=== PATIENT | female | born 1980 | race Two or more races ===

== ENCOUNTER → 2024-08-08 | Outpatient (CLI) | payer BC ==
[2024-08-08 07:52] LABS: Basophils # (auto) 0 10 ^3/uL (0-0.2); Basophils % (auto) 0.7 % (0.0-2.0); Eosinophils # (auto) 0.2 10 ^3/uL (0-0.8); Eosinophils % (auto) 3.9 % (0.0-7.0); Hematocrit 43.4 % (36.0-46.0); Hemoglobin 14.6 g/dL (12.2-16.2); Lymphocytes # (auto) 1.6 10 ^3/uL (0.4-5.4); Lymphocytes % (auto) 35.5 % (10.0-50.0); Mean Corpuscular Hemoglobin 30.8 pg (28.0-32.0); Mean Corpuscular Hgb Conc. 33.7 g/dL (32.0-36.0); Mean Corpuscular Volume 91.4 fL (80.0-100.0); Monocytes # (auto) 0.7 10 ^3/uL (0-1.3); Monocytes % (auto) 14.2 % (0.0-12.0); Neutrophils # (auto) 2.1 10 ^3/uL (1.6-8.6); Neutrophils % (auto) 45.7 % (37.0-80.0); Nucleated Red Blood Cells % 0.1 %; Platelet Count (auto) 279 10^3/uL (140-450); Red Blood Cells 4.75 10^6/uL (4.0-5.20); Red Cell Distribution Width 14.4 % (11.8-14.3); White Blood Cell 4.6 10^3/uL (4.4-10.8)
[2024-08-08 08:17] LABS: Alanine Aminotransferase 26 U/L (7-40); Albumin 4.2 g/dL (3.2-4.8); Alkaline Phosphatase 56 U/L (46-116); Anion Gap 6 (5-15); Aspartate Aminotransferase 18 U/L (13-40); BUN/Creatinine Ratio 12.5 (10.0-20.0); Bilirubin, Total 0.6 mg/dL (0.2-1.0); Blood Urea Nitrogen 9 mg/dL (9-23); Calcium 9.1 mg/dL (8.7-10.4); Carbon Dioxide 26 mmol/L (20-31); Chloride 107 mmol/L (98-107); Cholesterol 202 mg/dL (< 200); Glucose 79 mg/dL (74-106); HDL Cholesterol 76 mg/dL (40-59); LDL Cholesterol 112 mg/dL (< 100); Potassium 4.4 mmol/L (3.5-5.1); Sodium 139 mmol/L (136-145); Triglycerides 70 mg/dL (< 150)
== END | disposition home or self-care (01) ==
LOC: LAB 06:58
PROVIDERS: ATTEND Nurse Practitioner Family
DX: Z00.01 Encounter for general adult medical examination with abnormal findings (principal); E78.5 Hyperlipidemia, unspecified; E66.9 Obesity, unspecified; R73.03 Prediabetes; Z79.899 Other long term (current) drug therapy
CPT/HCPCS: 36415; 80053; 80061; 82043; 82306; 82672; 83036; 84144; 84403; 84443; 85025

== ENCOUNTER 2024-09-18 08:23 | Emergency (ER) | payer BC, OTHER ==
[~2024-09-18] VITALS: Ht 165.1 cm; Wt 82.3 kg
[2024-09-18 09:00] VITALS: BP 153/92; PULSE 84; RESP 18; TEMP 98; O2SAT 99
--- NOTE | 2024-09-18 10:31 | DVH ---
CLINICAL INDICATION: Osteomyelitis of the 2nd distal phalanx TECHNIQUE: XY L HAND 3V XRAY Comparison: None FINDINGS/IMPRESSION: : There is no evidence of acute fracture or dislocation. Soft tissues are unremarkable.
--- NOTE | 2024-09-18 10:58 | ED.PDOC ---
Musculoskeletal HPI Comments Presents with the concerns of possible infection to the left small finger. Reports she has been seen 3 times for the same complaint and is on her 3rd course of antibiotics. Completed a course of Augmentin, Keflex, in his currently on azithromycin. Concerned about localized erythema around the nail bed. No other complaint or concern. Chief Complaint: Wound Check Time Seen by MD: 08:46 Primary Care Provider: SHANITA Reviewed Notes: Nurses Notes, Medications, Allergies Allergies: Coded Allergies: Ketorolac (Verified Allergy, 02/10/12) Tramadol (Verified Allergy, 02/10/12) Tromethamine (Verified Allergy, 02/10/12) Information Source: Patient Mode of Arrival: Ambulatory Past Medical History PAST MEDICAL HISTORY: Denies Family History Family History: Reviewed,noncontributory to illness, Unknown Social History Smoker: Non-Smoker Lives In: Home All Other Systems: Reviewed and Negative (per hpi) Physical Exam General Appearance: No Apparent Distress, Normal HEENT: Normal ENT Inspection, Pharynx Normal, TMs Normal Neck: Full Range of Motion, Non-Tender, Normal, Normal Inspection Respiratory: Chest Non-Tender, Lungs Clear, No Accessory Muscle Use, No Respiratory Distress, Normal Breath Sounds Cardiovascular: No Edema, No JVD, No Murmur, No Gallop, Normal Peripheral Pulses, Regular Rate/Rhythm Breast Exam: Deferred Gastrointestinal: No Organomegaly, Non Tender, No Pulsatile Mass, Normal Bowel Sounds, Soft Genitalia: Deferred Pelvic: Deferred Rectal: Deferred Extremities: No calf tenderness, Normal capillary refill, Normal inspection, Normal range of motion, Non-tender, No pedal edema Musculoskeletal : Apperance: Normal Neurologic: Alert, torch cutter II-XII nml as Tested, No Motor Deficits, Normal Affect, Normal Mood, No Sensory Deficits Cerebellar Function: Normal Reflexes: Normal Skin: Dry, Normal Color, Warm Lymphatic: No Adenopathy Was a procedure done? Was a procedure done?: No Differential Diagnosis EXT Differential Diagnosis: Other X-Ray, Labs, Meds, VS Vital Signs Date Time Temp Pulse Resp B/P (MAP) Pulse Ox O2 Delivery O2 Flow Rate FiO2 09/18/24 09:00 98.0 84 18 153/92 (112) 99 98.0 09/18/24 09:00 84 18 99 Room Air 09/18/24 08:32 98.0 84 18 153/92 (112) 99 X-Ray, Labs, Meds, VS Comment Patient is stable for discharge at this time. External notes reviewed. Test results and diagnostic imaging interpreted. All diagnostic findings, discharge care, education and instructions provided Follow-up with PCP in 2 to 3 days Patient verbalized understanding and agreed to treatment plan Vital signs stable, afebrile, no acute distress noted Patient ambulatory with strong steady gait Advised to return precautions for any new or worsening symptoms, return to ER immediately for re-evaluation Patient is aware that the purpose of this visit was for an acute medical emergency requiring emergent stabilization. Chronic conditions, including malignancies have not been ruled out. Patient is instructed to follow up with PCP as directed and discharge instructions for continued care and workup. If unable to arrange follow-up, patient is to return to the emergency department for reassessment. Patient (parent or legal guardian if applicable) was given verbal and written discharge instructions and acknowledges understanding. Time of 1ST Reevaluation: 10:30 Reevaluation 1ST: Improved Patient Education/Counseling: Diagnosis, Treatment Family Education/Counseling: Diagnosis, Treatment Departure 1 Departure Time of Disposition: 10:57 Impression: Primary Impression: Paronychia Disposition: 01 HOME / SELF CARE / HOMELESS Condition: Stable Discharged With: Self Critical Care Note Critical Care Time?: No Stability Stability form required: No Heart Score Heart Score: Heart Score Response (Comments) Value History N/A 0 EKG N/A 0 Age N/A 0 Risk Factors N/A 0 Troponin N/A 0 Total 0 BASSAM SOLIS NP Sep 18, 2024 10:58
== END 2024-09-18 11:38 | disposition home or self-care (01) ==
LOC: ER 08:23
DX: L03.012 Cellulitis of left finger (principal); Z88.6 Allergy status to analgesic agent; Z88.8 Allergy status to other drugs, medicaments and biological substances
CPT/HCPCS: 73130

== ENCOUNTER → 2024-09-18 | Outpatient (CLI) | payer BC ==
[2024-09-18 13:18] LABS: Ferritin 10.6 ng/mL (10-291); Follicle Stimulating Hormone 13.46 IU/L (SEE BELOW); Leuteinizing Hormone 4.1 IU/L
== END | disposition home or self-care (01) ==
LOC: LAB 11:54
PROVIDERS: ATTEND Obstetrics & Gynecology
DX: E28.0 Estrogen excess (principal)
CPT/HCPCS: 82670; 82728; 83001; 83002

== ENCOUNTER 2025-02-05 08:09 | Day surgery (SDC) | payer BC ==
[2025-02-02 09:34] LABS: Urine Bacteria None Seen /hpf (None Seen)
[2025-02-02 09:46] LABS: Basophils # (auto) 0 10 ^3/uL (0-0.2); Basophils % (auto) 0.6 % (0.0-2.0); Eosinophils # (auto) 0.1 10 ^3/uL (0-0.8); Eosinophils % (auto) 1.7 % (0.0-7.0); Hematocrit 44.8 % (36.0-46.0); Hemoglobin 14.9 g/dL (12.2-16.2); Lymphocytes # (auto) 2.1 10 ^3/uL (0.4-5.4); Lymphocytes % (auto) 29.1 % (10.0-50.0); Mean Corpuscular Hemoglobin 30.7 pg (28.0-32.0); Mean Corpuscular Hgb Conc. 33.3 g/dL (32.0-36.0); Mean Corpuscular Volume 92.2 fL (80.0-100.0); Monocytes # (auto) 0.7 10 ^3/uL (0-1.3); Monocytes % (auto) 9.6 % (0.0-12.0); Neutrophils # (auto) 4.2 10 ^3/uL (1.6-8.6); Platelet Count (auto) 321 10^3/uL (140-450); Red Blood Cells 4.86 10^6/uL (4.0-5.20); Red Cell Distribution Width 14.3 % (11.8-14.3); White Blood Cell 7.2 10^3/uL (4.4-10.8)
[2025-02-02 10:08] LABS: INR 1.03 (0.9-1.15); Partial Thromboplastin Time 30.8 SEC (24.5-34.5); Prothrombin Time 10.9 sec (9.3-11.8)
[2025-02-02 10:10] LABS: Alanine Aminotransferase 28 U/L (7-40); Albumin 4.6 g/dL (3.2-4.8); Alkaline Phosphatase 49 U/L (46-116); Anion Gap 7 (5-15); Aspartate Aminotransferase 20 U/L (13-40); BUN/Creatinine Ratio 19.7 (10.0-20.0); Blood Urea Nitrogen 15 mg/dL (9-23); Calcium 9.7 mg/dL (8.7-10.4); Carbon Dioxide 26 mmol/L (20-31); Chloride 102 mmol/L (98-107); Glucose 85 mg/dL (74-106); Potassium 4.2 mmol/L (3.5-5.1); Total Protein 7.4 g/dL (5.7-8.2)
[2025-02-02 10:11] LABS: Bilirubin, Total 0.9 mg/dL (0.2-1.0)
[2025-02-02 10:19] LABS: Sodium 135 mmol/L (136-145)
[2025-02-02 10:35] LABS: Urine Blood 2+ /uL (Negative); Urine Clarity Clear (Clear); Urine Color Colorless (Yellow); Urine Protein, UAD Negative (Negative); Urine Specific Gravity 1.004 (1.001-1.035); Urine Squamous Epithelial Cell FEW /hpf (<5); Urine Urobilinogen Normal (Negative); Urine WBC 1 /HPF (0-5); Urine pH 6.5 (5.0-9.0)
[~2025-02-05] VITALS: Ht 165.1 cm; Wt 83.9 kg
[~2025-02-05 08:09] MED LIST: ACET-1079 PO; IBUP-1453 PO
[2025-02-05] MEDS ORDERED: ceFAZolin 2 GM/D5W50ml 50 ML IV ONE (09:21)
[2025-02-05] MEDS ORDERED: PROPOFOL 10 MG/ML 20 ML IV ONE (11:19)
[2025-02-05] MEDS ORDERED: DexAMETHasone SOD PHOS 10MG/1ML VIAL INJ ONE (11:19)
[2025-02-05] MEDS ORDERED: MIDAZOLAM HCL 2MG/2ML 2ml VIAL (1mg/ml) ONE (11:19)
[2025-02-05] MEDS ORDERED: ONDANSETRON HCL 4 MG/2 ML VIAL ONE (11:19)
[2025-02-05] MEDS ORDERED: fentaNYL CITRATE 100 MCG/2 ML VL ONE (11:19)
[2025-02-05] MEDS ORDERED: VASOPRESSIN 20 UNIT/ML ONE (11:56)
--- NOTE | 2025-02-05 12:17 | DVHHP2 ---
[employer] CC & HPI Date Date of Admission: February 05, 2025 Chief Complaints: Reason for admission: Outpatient surgical procedure History of Present Complaints History of Present Complaints 44y with abnormal findings on Pelvic US: Thickened endometrial with suspicion of cystic hyperplasia vs Polyp. US suggestive also of a 1.5cm submucous fibroid and a 5.9cm posterior intramural fibroid Denies abnormal uterine bleeding. PAP smear up to date, NILM/ HPV neg Patient considering one more , wants conservative mgmt for fibroids. Past Medical History Cardiac: No pertinent Hx Pulmonary: No pertinent Hx Central Nervous System: No pertinent Hx GI: No pertinent Hx Hemotology/Oncology: No pertinent Hx Hepatobiliary: No pertinent Hx Psychiatric: No pertinent Hx Musculoskeletal: No pertinent Hx Rheumotologic: No pertinent Hx Infectious Disease: No peritnent Hx ENT: No pertinent Hx Renal/: Other (Nephrolithiasis) Endocrine: No pertinent Hx Dermatology: No pertinent Hx Past Surgical History: No pertinent Hx YOU[employer] SERVICES LIBRARIAN History [employer] LIBRARIAN History [employer] LIBRARIAN History: G1PO TAB x 1 History of RSO (ovarian cyst) and cervical cryotherapy Allergies: Coded Allergies: Ketorolac (Verified Allergy, Unknown, 11/07/24) Tramadol (Verified Allergy, Unknown, 11/07/24) Tromethamine (Verified Allergy, Unknown, 11/07/24) Home Meds Reported Medications Acetaminophen (Tylenol) 325 Mg Tb, PO PRN, TAB 02/02/25 Ibuprofen (Ibuprofen) 400 Mg Tab, 400 MG PO PRN, TAB 02/02/25 Family History Negative Social History Denies EtOH, Tobacco or Drug use Review of Systems Constitutional: No symptom reported Ears, Nose, & Throat: No symptom reported Eyes: No symptom reported Pulmonary/Respiratory: No symptom reported Cardiovascular: No symptom reported Gastrointestinal: No symptom reported Genitourinary: No symptom reported Musculoskeletal: No symptom reported Skin: No symptom reported Psychiatric: No symptom reported Endocrine: No symptom reported Hemotologic/Lymphatic: No symptom reported Physical Exam Physical Exam HEENT: NCAT Heart: Rhythm Normal Lungs: Clear Abdomen: Non tender Extremities: Normal Reflexes: Normal Vice President Diversity/Pelvic Exam: Other (Cervix flush with vagina. no lesions. uterus small < 8wk size, no masses) Assessment and Plan Plan Assessment and Plan: 1. Abnormal finding on Pelvic US suspicious for endometrial lesion: Polyp vs. Submucous Fibroid vs hyperplasia 2. Intramural uterine fibroid Plan: The patient will be observed and checked in for outpatient procedure: Consent: Pelvic Exam under Anesthesia, Operative Hysteroscopy, Dilation and curettage, Myosure Polypectomy vs submucous myomectomy. Risks of procedure: pain, bleeding, infection, injury to uterus (perforation), recurrence of submucous fibroids all discussed with patient in detail. She understands NO TREATMENT will be performed today for intramural 5.9cm fibroid ( Acessa procedure is not available at this facility), we will refer to outside facility for treatment options. Visit Coding OBGYN Date of Service: February 05, 2025 Billing Provider: ROMEL JIMENEZ DO [employer]DER Common Visit Codes: 51304-IHDTLYV INP/OBS CARE (HIGH), PROCEDURE ONLY [employer] F[employer]DER Procedure Codes: 95649-Y&C, DIAG OR THERAPEUTIC, 24949-[id number], SURGICAL ROMEL JIMENEZ DO February 05, 2025 12:17
[2025-02-05] MEDS ORDERED: ePHEDrine SULFATE 50 MG/ML AMP IV PRN (13:00)
[2025-02-05] MEDS ORDERED: MORPHINE SULFATE 4 MG/ML SYR/VIAL IV PRN (13:00)
[2025-02-05] MEDS ORDERED: hydrALAZINE HCL 20 MG/ML VL IV PRN (13:00)
[2025-02-05] MEDS ORDERED: ONDANSETRON HCL 4 MG/2 ML VIAL IV ONE (13:00)
[2025-02-05] MEDS ORDERED: MIDAZOLAM HCL 2MG/2ML 2ml VIAL (1mg/ml) IV PRN (13:00)
[2025-02-05] MEDS ORDERED: IBUP-1455 PO (13:23)
[2025-02-05 13:35] VITALS: PULSE 78; RESP 16; TEMP 97.6; O2SAT 97
[2025-02-05] MEDS: HYDROmorphone HCL 2 MG/ML VL/or syr IV PRN (13:35)
--- NOTE | 2025-02-05 14:25 | DVHOP ---
DATE OF SURGERY: 02/05/2025 PREOPERATIVE DIAGNOSES: * Submucous uterine fibroid versus polyp. * Thickened endometrium on ultrasound suspicious for hyperplasia. * Intramural 5.9 cm uterine fibroid. POSTOPERATIVE DIAGNOSES: * Submucous uterine fibroid versus polyp. * Thickened endometrium on ultrasound suspicious for hyperplasia. * Intramural 5.9 cm uterine fibroid. PROCEDURES PERFORMED: * Pelvic exam under anesthesia. * Operative hysteroscopy. * MyoSure polypectomy. * Fractional dilation and curettage. SURGEON: Connor Cruz DO LUBE WORKER: None. TYPE OF ANESTHESIA: General endotracheal. ANESTHESIOLOGIST: Frank Shaffer MD INDICATION FOR PROCEDURE: The patient is a 44-year-old female 2, para 0, one previous . The patient does not have any children. The patient desires to preserve future fertility. The patient had pelvic pain and had an incidental finding on ultrasound of a myomatous uterus. There was a posterior 5.9 cm uterine leiomyoma. There was also thickening of the endometrium on ultrasound with cystic changes concerning for hyperplasia versus polyp. The patient denies any abnormal uterine bleeding. Her recent Pap smear was normal. DESCRIPTION OF FINDINGS: A small nulliparous cervical os. Uterine cavity sounds to 8 cm. Uterus not grossly enlarged. No gross evidence of malignancy on hysteroscopy. No evidence of hyperplasia. There was a small 1 cm polyp on a stalk that was removed with MyoSure. There was also a type 1 submucous leiomyoma in the left cornual region abutting the left tubal ostium. Bilateral tubal ostia successfully visualized. TECHNICAL PROCEDURE: After informed consent was obtained, the patient was taken to the operating room where she underwent smooth induction with general anesthesia. The patient was placed in dorsal lithotomy position in [facility]. The vagina, perineum, and abdomen thoroughly prepped and the patient sterilely draped in usual fashion. A pelvic exam was then performed under anesthesia with the above-noted findings. A weighted speculum was placed into the patient's vagina and the anterior lip of the cervix grasped with a single-tooth tenaculum. Uterine cavity sounded to 8 cm. The cervix was pinpoint and nuliparous. Using the os finders, the endocervical canal was found. This was then gently and serially dilated to accommodate a 6 mm diagnostic hysteroscope. The hysteroscope was inserted via the endocervical canal into the uterine cavity under direct visualization. Normal saline was used as the distention media. Survey of the endometrial cavity revealed the above-noted findings. There was a small 1.5 cm poly, benign-appearing, on a stalk. Bilateral tubal ostia were successfully seen. There was also a type 1 submucous fibroid approximately 1.5 cm abutting the left tubal ostium. This could not be resected. Using the MyoSure device, the polyp was removed. Photos were obtained of the intrauterine pathology. Next, the instrument was removed under direct visualization. A sharp uterine curettage was performed and the endometrial curettings collected on Telfa pad. The specimen was submitted to Pathology. At this point, all instrumentation was removed from the patient's cervix and vagina. No bleeding was noted. The patient was taken out of lithotomy position, awakened, and taken to recovery room in stable condition. INTRAOPERATIVE COMPLICATIONS: None. ESTIMATED BLOOD LOSS: Less than 50 mL. POSTOPERATIVE CONDITION: Stable. SPECIMENS: * Endometrial curettings. * Endometrial polyp. DO DWAYNE Rogers/KIKO TID: [id number] RECEIPT: [id number] [facility]
[2025-02-05 14:56] VITALS: BP 111/76; PULSE 72; RESP 18; O2SAT 97
== END 2025-02-05 15:15 | disposition home or self-care (01) ==
LOC: SUR 08:09
PROVIDERS: ATTEND Obstetrics & Gynecology
DX: N84.0 Polyp of corpus uteri (principal); D25.1 Intramural leiomyoma of uterus; R93.89 Abnormal findings on diagnostic imaging of other specified body structures; R10.2 Pelvic and perineal pain; Z90.721 Acquired absence of ovaries, unilateral; Z88.5 Allergy status to narcotic agent; Z98.890 Other specified postprocedural states
CPT/HCPCS: 36415; 58558; 80053; 81001; 84702; 85025; 85610; 85730; 86850; 86900; 86901; 88305; J0690; J1100; J1171; J2250; J2405; J2704; J3010

== ENCOUNTER 2025-03-12 07:25 | Outpatient (CLI) | payer BC ==
[~2025-03-12 07:25] MED LIST changes: +IBUP-1455 PO
[2025-03-12 08:03] LABS: Basophils # (auto) 0.1 10 ^3/uL (0-0.2); Eosinophils # (auto) 0.3 10 ^3/uL (0-0.8); Eosinophils % (auto) 6.2 % (0.0-7.0); Hematocrit 43.2 % (36.0-46.0); Hemoglobin 14.6 g/dL (12.2-16.2); Lymphocytes % (auto) 37.1 % (10.0-50.0); Mean Corpuscular Hemoglobin 30.8 pg (28.0-32.0); Mean Corpuscular Hgb Conc. 33.9 g/dL (32.0-36.0); Mean Corpuscular Volume 90.9 fL (80.0-100.0); Monocytes # (auto) 0.7 10 ^3/uL (0-1.3); Monocytes % (auto) 13.7 % (0.0-12.0); Neutrophils # (auto) 2.2 10 ^3/uL (1.6-8.6); Platelet Count (auto) 258 10^3/uL (140-450); Red Blood Cells 4.75 10^6/uL (4.0-5.20); Red Cell Distribution Width 14.4 % (11.8-14.3); White Blood Cell 5.3 10^3/uL (4.4-10.8)
[2025-03-12 08:33] LABS: Alanine Aminotransferase 19 U/L (7-40); Albumin 4.4 g/dL (3.2-4.8); Alkaline Phosphatase 57 U/L (46-116); Anion Gap 9 (5-15); Aspartate Aminotransferase 18 U/L (<34); BUN/Creatinine Ratio 15.7 (10.0-20.0); Blood Urea Nitrogen 11 mg/dL (9-23); Calcium 9.3 mg/dL (8.7-10.4); Carbon Dioxide 22 mmol/L (20-31); Chloride 107 mmol/L (98-107); Glucose 84 mg/dL (74-106); LDL Cholesterol 151 mg/dL (< 100); Potassium 4.3 mmol/L (3.5-5.1); Sodium 138 mmol/L (136-145); Triglycerides 118 mg/dL (< 150)
[2025-03-12 08:34] LABS: Bilirubin, Total 0.4 mg/dL (0.2-1.0)
[2025-03-12 08:37] LABS: HDL Cholesterol 81 mg/dL (40-59)
[2025-03-12 09:16] LABS: Cholesterol 233 mg/dL (< 200)
== END 2025-03-12 17:00 | disposition home or self-care (01) ==
LOC: LAB 07:25
PROVIDERS: ATTEND Nurse Practitioner Family
DX: E78.5 Hyperlipidemia, unspecified (principal); E66.9 Obesity, unspecified; R73.03 Prediabetes; Z00.01 Encounter for general adult medical examination with abnormal findings; Z79.899 Other long term (current) drug therapy
CPT/HCPCS: 36415; 80053; 80061; 82043; 82306; 83036; 84443; 85025

== ENCOUNTER → 2025-03-28 | Outpatient (CLI) | payer BC ==
[~2025-03-28] VITALS: Ht 167.6 cm; Wt 84.4 kg
[~2025-03-28] MED LIST changes: +IBUP-1456 PO; +LACT10SO3 PO; +TAMS-35 PO
--- NOTE | 2025-03-28 10:24 | DVHCARD ---
Cardiology Stress Test Workshe Treadmill Stress Test Workshee Referring MD: MD Orion Protocol: Harjit (with cardiolite) Reason for referral: Chest Pain Target heart Rate:@85%: 150 Percent MPHR: 177 METS: 10.4 Resting Heart rate: 70 Resting Blood Pressure: 141/87 Exercise Heart Rate: 139 Exercise Blood Pressure: 146/86 Reason for Termination of Test: Completion of Protocol Baseline EKG: NSR Stress EKG: Sinus tachycardia w/o evidence of acute ST-T wave changes Functional Capacity: Good Normal Heart Rate Response: Adequate Blood Pressure Response: Normal Clinical response: Non-ischemic Arrhythmia?: No Cardiolite Injected?: Yes ST-T Changes: Non/Minimal Probability of Inducible Ische: Perfusion result pending Comments: Uneventful Harjit protocol Date of Service: Mar 28, 2025 Billing Provider: MARSHA SHAH Cardiology Common Codes: PROCEDURE ONLY Treadmill W/Cardiolite Nuclear: [id number], INTERP, RPT MARSHA SHAH Mar 28, 2025 10:23
--- NOTE | 2025-04-09 08:32 | DVHSR ---
APPROVED REPORT Exam: Nuclear Stress Test Indication: chest pain BMI: 0 Medical History Medical History: htn, prediabetic, high cholesterol Stress Test Details Stress Test: Exercise stress testing was performed using a Harjit protocol. HR Resting HR: 71 bpmMax Heart Rate (APMHR): 177.051667 bpm Max HR Achieved: 139 bpmTarget HR (85% APMHR): 150.420970 bpm % of APMHR: 78.53 Recovery HR: 86 bpm BP Resting BP: 141/87 mmHg Recovery BP: 146/86 mmHg ECG Resting ECG: Sinus Rhythm Clinical Reason for Termination: Completed protocol Exercise capacity: 10.4 METs Stress ECG Conclusion lvef 80% normal perfusion scan no ischemia NM EXAM: Myocardial Perfusion REST/STRESS Imaging Protocol: Rest Tc-99m/Stress Tc-99m 1 day Resting Data Rest SPECT myocardial perfusion imaging was performed in supine position 45 minutes following the int ravenous injection of 9.5 mCi of Tc-99m Sestamibi. Time of rest injection: 09:05 Date: 03/28/2025 Time of rest imagin:50 Date: 03/28/2025 Administration Route: IV Administration Site: Right AC Exercise Stress At peak stress, the patient was injected intravenously with 28.5mCi of Tc-99m Sestamibi. Time of stress injection: 10:00 Date: 03/28/2025 Time of stress imagin:00 Date: 03/28/2025 Administration Route: IV Administration Site: Right AC Gated Stress SPECT was performed 60 minutes after stress injection. The images were gated to evaluate regional wall motion and calculate left ventricular ejection fracti on. Stress only was performed in the Supine position. Nuclear Conclusion Nuclear Findings: negative for ischemia lvef 80% normal perfusion scan no ischemia
== END | disposition home or self-care (01) ==
LOC: XYW 08:37
PROVIDERS: ATTEND Student in an Organized Health Care Education/Training Program
DX: R07.9 Chest pain, unspecified (principal); I10 Essential (primary) hypertension; E78.00 Pure hypercholesterolemia, unspecified; R73.03 Prediabetes
CPT/HCPCS: 78452; 93017; A9500

== ENCOUNTER 2025-04-27 10:30 | Day surgery (SDC) | payer BC ==
[2025-04-25 11:40] LABS: Hematocrit 41.0 % (36.0-46.0); Hemoglobin 13.9 g/dL (12.2-16.2); Mean Corpuscular Hemoglobin 31.3 pg (28.0-32.0); Mean Corpuscular Volume 92.1 fL (80.0-100.0); Nucleated Red Blood Cells % 0.0 %
[2025-04-25 11:44] LABS: Urine Protein, UAD Negative (Negative)
[2025-04-25 11:53] LABS: INR 1.07 (0.9-1.15); Partial Thromboplastin Time 30.9 SEC (24.5-34.5); Prothrombin Time 11.3 sec (9.3-11.8)
[2025-04-25 12:19] LABS: Alanine Aminotransferase 24 U/L (7-40); Alkaline Phosphatase 60 U/L (46-116); Anion Gap 7 (5-15); BUN/Creatinine Ratio 16.5 (10.0-20.0); Blood Urea Nitrogen 13 mg/dL (9-23); Calcium 9.2 mg/dL (8.7-10.4); Carbon Dioxide 26 mmol/L (20-31); Chloride 104 mmol/L (98-107); Glucose 79 mg/dL (74-106); Potassium 4.4 mmol/L (3.5-5.1); Sodium 137 mmol/L (136-145); Total Protein 6.9 g/dL (5.7-8.2)
[2025-04-25 12:20] LABS: Albumin 4.5 g/dL (3.2-4.8); Bilirubin, Total 0.4 mg/dL (0.2-1.0)
[~2025-04-27] VITALS: Ht 167.6 cm; Wt 87.1 kg
[~2025-04-27 10:30] MED LIST changes: +HYDR10SY18 PO; -IBUP-1453 PO; -IBUP-1455 PO; -IBUP-1456 PO; -LACT10SO3 PO; +NALT1TAB12 PO; +OMEP20TA PO; +PANT40TA2 PO; -TAMS-35 PO
[2025-04-27] MEDS ORDERED: LIDOCAINE VISCOUS 2% 15ML UD ONE (12:18)
[2025-04-27] MEDS ORDERED: fentaNYL CITRATE 100 MCG/2 ML VL ONE (12:21)
[2025-04-27] MEDS ORDERED: SODIUM CHLORIDE LOCK 10 ML ONE (12:21)
[2025-04-27] MEDS ORDERED: KETAMINE 50mg/ML 10ml Vial 10 ML ONE (12:21)
[2025-04-27] MEDS ORDERED: MIDAZOLAM HCL 2MG/2ML 2ml VIAL (1mg/ml) ONE (12:21)
[2025-04-27] MEDS ORDERED: ONDANSETRON HCL 4 MG/2 ML VIAL ONE (12:21)
[2025-04-27] MEDS ORDERED: PROPOFOL 10 MG/ML 20 ML IV ONE (12:21)
[2025-04-27 12:54] VITALS: PULSE 91; RESP 14; TEMP 98; O2SAT 97
[2025-04-27] MEDS ORDERED: ONDANSETRON HCL 4 MG/2 ML VIAL IV ONE (13:19)
[2025-04-27] MEDS: ONDANSETRON HCL 4 MG/2 ML VIAL ONE (13:23)
[2025-04-27 13:39] VITALS: BP 123/76; PULSE 77; RESP 20; O2SAT 100
--- NOTE | 2025-04-27 13:45 | DVHOP2 ---
Operative Report DATE OF OPERATION: 04/27/25 PROCEDURE: Diagnostic Colonoscopy. PREOPERATIVE INDICATION: The patient is a 44 -year-old female undergoing colonoscopy for colon cancer screening POSTOPERATIVE DIAGNOSES: 1. Trace to 1+ internal hemorrhoids otherwise complete and normal examination up to the cecum and terminal ileum 2. Patient had a somewhat long tortuous and redundant colon PROCEDURE PERFORMED BY: Noam Talbot M.D. SCOPE: Olympus videocolonoscope. ASA CLASS: 2. PREOPERATIVE MEDICATIONS: Mac sedation Dr. Becerra PROCEDURE IN DETAIL: After obtaining an informed consent, the patient was placed on left lateral decubitus position. She was then sedated with the above medications. A rectal examination was performed that was normal. The colonoscope was then passed through the anus into the rectosigmoid and through the descending, transverse, and ascending colon up to the cecum with visualization of the appendiceal orifice, base of the cecum and the ileocecal valve. The colonoscope was then withdrawn. Polyps or masses were seen. No no colitis or diverticular disease Patient had a somewhat long tortuous and redundant colon. On retroflexion she had trace internal hemorrhoids The patient tolerated the procedure well without difficulty. WITHDRAWAL TIME: 7 minutes QUALITY OF THE PREP: [place] Bowel Prep score: 9. COMPLICATIONS : None SPECIMENS: None DISPOSITION: Stable D/C to home PLAN: 1. Repeat colonoscopy in 10 years 2. Resume GI soft diet advance as tolerated 3. Increase fluid and fiber intake 4. Outpatient follow up with me in 4-6 weeks to review results and discuss further management NOAM TALBOT MD Apr 27, 2025 13:45
--- NOTE | 2025-04-27 14:25 | DVHOP2 ---
Operative Report DATE OF OPERATION: 04/27/25 PROCEDURE: Upper Endoscopy with biopsy. PREOPERATIVE INDICATION: The patient is a 44 -year-old female undergoing endoscopy for chronic GERD POSTOPERATIVE DIAGNOSES: 1. 1-2 cm sliding-type hiatal hernia with grade a erosive esophagitis and GE junction biopsies were obtained 2. Mild antral gastritis otherwise normal examination up to the 2nd and 3rd part of the duodenum PROCEDURE PERFORMED BY: Noam Talbot GI NURSE: Meghan SCOPE: Olympus videoendoscope. ASA CLASS: 2 PREOPERATIVE MEDICATIONS: Mac sedation, Dr. Becerra PROCEDURE IN DETAIL: After obtaining an informed consent, the patient was placed on left lateral decubitus position. The patient was then sedated with the above medications. A bite block was placed between her teeth. The endoscope was then passed through the oropharynx, into the esophagus, and through the stomach and pylorus up to the second and third part of the duodenum. The endoscope was then withdrawn. The 2nd and 3rd part of the duodenal and the duodenal bulb were normal. The pre-pyloric area and antrum showed mild gastritis. Gastric biopsies were obtained. On retroflexion the fundus cardia and angularis were normal. Duodenal and gastric biopsies were obtained The endoscope was then withdrawn into distal esophagus where she had a 1-2 cm sliding-type hiatal hernia with slightly irregular squamocolumnar junction no significant erosive esophagitis Junction biopsies were obtained. The remaining distal and proximal esophagus and oropharynx were unremarkable. The patient tolerated the procedure well without difficulty. COMPLICATIONS : None SPECIMENS: Duodenal bx Gastric biopsies GE junction biopsies DISPOSITION: Stable D/C to home PLAN: 1. Await for biopsy result 2. Will place pt on Protonix 40 mg p.o. daily 3. Lifestyle and dietary modifications for GERD 4. Resume GI soft diet advance as tolerated 5. Outpatient follow up with me in 4-6 weeks to review results and discuss further management NOAM TALBOT MD Apr 27, 2025 14:25
== END 2025-04-27 13:50 | disposition home or self-care (01) ==
LOC: GI 10:30 → EDUNIT# 16:00
PROVIDERS: ATTEND Internal Medicine Gastroenterology
DX: K59.09 Other constipation (principal); K64.0 First degree hemorrhoids; Q43.8 Other specified congenital malformations of intestine; K64.8 Other hemorrhoids; K44.9 Diaphragmatic hernia without obstruction or gangrene; K22.10 Ulcer of esophagus without bleeding; K21.9 Gastro-esophageal reflux disease without esophagitis; K29.80 Duodenitis without bleeding; K29.50 Unspecified chronic gastritis without bleeding; I10 Essential (primary) hypertension; Z98.890 Other specified postprocedural states
CPT/HCPCS: 36415; 43239; 45378; 80053; 81001; 84702; 85025; 85610; 85730; 88305; 88342; J2250; J2405; J2704; J3010; J7030

== ENCOUNTER → 2025-05-30 | Outpatient (CLI) | payer BC ==
[2025-05-30 12:32] LABS: Hematocrit 42.9 % (36.0-46.0); Hemoglobin 14.5 g/dL (12.2-16.2); Mean Corpuscular Hemoglobin 30.9 pg (28.0-32.0); Mean Corpuscular Volume 91.7 fL (80.0-100.0); Nucleated Red Blood Cells % 0.0 %
[2025-05-30 13:32] LABS: Alanine Aminotransferase 22 U/L (7-40); Albumin 4.4 g/dL (3.2-4.8); Alkaline Phosphatase 58 U/L (46-116); Anion Gap 7 (5-15); BUN/Creatinine Ratio 14.9 (10.0-20.0); Bilirubin, Total 0.5 mg/dL (0.2-1.0); Blood Urea Nitrogen 10 mg/dL (9-23); Calcium 9.3 mg/dL (8.7-10.4); Carbon Dioxide 26 mmol/L (20-31); Chloride 107 mmol/L (98-107); Glucose 83 mg/dL (74-106); Potassium 4.6 mmol/L (3.5-5.1); Sodium 140 mmol/L (136-145); Total Protein 7.3 g/dL (5.7-8.2)
== END | disposition home or self-care (01) ==
LOC: LAB 12:04
PROVIDERS: ATTEND Internal Medicine Gastroenterology
DX: R10.9 Unspecified abdominal pain (principal)
CPT/HCPCS: 36415; 80053; 82785; 85025; 86003